=== PATIENT | male | born 1995 | race Caucasian/White ===

== ENCOUNTER 2020-04-25 23:08 | Emergency (ER) | payer OTHER ==
--- NOTE | 2020-04-25 23:26 | ER Document Report ---
ED Burn/Smoke/Toxic Fumes - General Stated Complaint: SUNBURN Time Seen by Provider: 04/25/20 23:23 Mode of Arrival: Ambulatory Information source: Patient - 24-year-old male presented to the emergency room today by ambulance stating that he had received pretty severe sunburn he had a lot of pain and itching he was provided with some Benadryl in route which she states helped dramatically. TRAVEL OUTSIDE OF THE [place] IN LAST 30 DAYS: Yes - HPI Patient complains to provider of: Burn Onset: Just prior to arrival Where: Outdoors Quality of pain: Achy Severity: None Past Medical History - General Information source: Patient - Social History Smoking Status: Current Every Day Smoker Cigarette use (# per day): No Chew tobacco use (# tins/day): No Smoking Education Provided: No Frequency of alcohol use: None Drug Abuse: None Family History: None Review of Systems - Review of Systems Constitutional: No symptoms reported EENT: No symptoms reported Cardiovascular: No symptoms reported Respiratory: No symptoms reported Gastrointestinal: No symptoms reported Genitourinary: No symptoms reported Male Genitourinary: No symptoms reported Musculoskeletal: No symptoms reported Skin: No symptoms reported - Sunburn first-degree greater back area. Hematologic/Lymphatic: No symptoms reported Neurological/Psychological: No symptoms reported Physical Exam - Vital signs Interpretation: Normal - General General appearance: Appears well, Alert - HEENT Head: Normocephalic, Atraumatic Eyes: Normal Pupils: PERRL - Respiratory Respiratory status: No respiratory distress Chest status: Nontender Breath sounds: Normal Chest palpation: Normal - Cardiovascular Rhythm: Regular Heart sounds: Normal auscultation Murmur: No - Abdominal Inspection: Normal Distension: No distension Bowel sounds: Normal Tenderness: Nontender Organomegaly: No organomegaly - Back Back: Normal, Nontender - Extremities General upper extremity: Normal inspection, Nontender, Normal color, Normal ROM, Normal temperature General lower extremity: Normal inspection, Nontender, Normal color, Normal ROM, Normal temperature, Normal weight bearing. No: Rosalind's sign - Neurological Neuro grossly intact: Yes Cognition: Normal Orientation: AAOx4 Norma Coma Scale Eye Opening: Spontaneous Norma Coma Scale Verbal: Oriented Norma Coma Scale Motor: Obeys Commands Norma Coma Scale Total: 15 Speech: Normal Motor strength normal: LUE, RUE, LLE, RLE Sensory: Normal - Psychological Associated symptoms: Normal affect, Normal mood - Skin Skin Temperature: Warm Skin Moisture: Dry Skin Color: Normal Discharge - Discharge Clinical Impression: Sunburn Disposition: HOME, SELF-CARE Instructions: Sunburn ([facility]) Additional Instructions: Sunburn Sunburn is caused by prolonged exposure to ultraviolet light. This can be natural sunlight or a tanning bed. Your symptoms may include redness or blistering of the skin, fatigue, weakness, and chills that last two or three da ys. Treatment includes antiinflammatory pain medication, rest, cooling baths, and moisturizing skin cream. Occasionally, cortisone-type medicine is required for severe sunburns. Antihistamines may be helpful if itching is severe as you heal. You should avoid any exposure to ultraviolet light for the next week or two so that further skin damage can be avoided. In the future, you should use sunscreens. Frequent or prolonged ultraviolet light exposure can cause premature skin aging, skin cancers, and wrinkles. Call the doctor if you are not improving in two or three days. Report any drainage, increasing swelling, fever, chills, or other signs of infection. Prescriptions: Diphenhydramine HCl [Benadryl 25 mg Capsule] 25 mg PO Q6 PRN #25 capsule PRN Reason:
[2020-04-25 23:50] VITALS: BP 121/58
== END 2020-04-25 23:35 | disposition home or self-care (01) ==
LOC: ER 23:08
DX: L55.0 Sunburn of first degree (principal); F17.200 Nicotine dependence, unspecified, uncomplicated
CPT/HCPCS: 99283